=== PATIENT | male | born 1955 | race Caucasian/White ===

== ENCOUNTER 2021-02-16 10:16 | Emergency (ER) | payer OTHER ==
[~2021-02-16 10:16] MED LIST: HYDROCHLOROT25 MG PO; LISINOPRIL2.5 MG PO; NORVASC2.5 M1 PO
[2021-02-16] MEDS ORDERED: LAMICTAL25 M2 PO (10:29)
[2021-02-16] MEDS ORDERED: ASPIRIN LOW81 M1 PO (10:29)
[2021-02-16 11:05] LABS: HEMATOCRIT 37.9 % (39.0-50.0); HEMOGLOBIN 12.5 g/dl (14.0-18.0); IMMATURE GRANULOCYTES 0.2 % (0.0-5.0); MEAN CELL VOLUME 89.6 fL CALC (80.0-100.0); MEAN CORPUSCULAR HGB 29.6 pG CALC (26.0-32.0); NEUT# 5.7 thou/uL (1.82-7.42); RED BLOOD COUNT 4.23 mill/uL (4.70-6.10); RED CELL DISTRI WIDTH 13.6 % (11.5-15.5)
[2021-02-16 11:22] LABS: ANION GAP 12 (6-22 (CALC)); BUN 20 mg/dL (8-23); BUN/CREATININE RATIO 30 (12-20 (CALC)); CARBON DIOXIDE 24 mmol/l (22-30); CHLORIDE 99 mmol/l (95-108); CREATININE 0.7 mg/dL (0.7-1.3); GFR > 60 ML/MIN (>=60 (CALC)); GFR FOR AFR.AMER. > 60 ML/MIN (>=60 (CALC)); POTASSIUM 3.3 mmol/l (3.5-5.1); SODIUM 131 mmol/l (137-146)
[2021-02-16] MEDS ORDERED: CEPHALEXIN500 M1 PO (14:07)
[2021-02-16 14:14] VITALS: BP 135/70
[2021-04-05] MEDS ORDERED: PRAVASTATIN10 MG PO (08:34)
[2021-04-05] MEDS ORDERED: NORVASC5 M1 PO (08:34)
[2021-04-05] MEDS ORDERED: EXCEDRIN EXTRA1 TA1 PO (08:35)
[2021-04-05] MEDS ORDERED: IBUPROFEN PO (08:36)
[2021-04-05] MEDS ORDERED: FAMOTIDINE20 M1 PO (08:37)
[2021-04-08] MEDS ORDERED: NORVASC PO (07:21)
[2021-04-08] MEDS ORDERED: PEPCID20 MG PO (07:21)
[2021-04-08] MEDS ORDERED: TUMS500 MG PO (07:22)
[2021-04-08] MEDS ORDERED: PRAVACHOL20 MG PO (07:22)
== END 2021-02-16 14:52 | DRG 916 ==
LOC: ED 10:16
PROVIDERS: Family Medicine
DX: T78.40XA Allergy, unspecified, initial encounter (principal); L03.211 Cellulitis of face; I10 Essential (primary) hypertension; G50.0 Trigeminal neuralgia; X58.XXXA Exposure to other specified factors, initial encounter; Z20.822 Contact with and (suspected) exposure to COVID-19

== ENCOUNTER 2021-04-09 06:11 | Day surgery (SDC) | payer OTHER ==
[~2021-04-09 06:11] MED LIST changes: +ASPIRIN LOW81 M1 PO; +CEPHALEXIN500 M1 PO; +EXCEDRIN EXTRA1 TA1 PO; +FAMOTIDINE20 M1 PO; +IBUPROFEN PO; +LAMICTAL25 M2 PO; +NORVASC PO; +NORVASC5 M1 PO; +PEPCID20 MG PO; +PRAVACHOL20 MG PO; +PRAVASTATIN10 MG PO; +TUMS500 MG PO
[2021-04-09 13:03] VITALS: BP 161/83
== END 2021-04-09 13:55 | DRG 352 ==
LOC: ORM 06:11
PROVIDERS: ATTEND Surgery
PROC: 0YU60JZ Supplement Left Inguinal Region with Synthetic Substitute, Open Approach (ICD-10-PCS; principal; 2021-04-09)
PROC: 0VBG0ZZ Excision of Left Spermatic Cord, Open Approach (ICD-10-PCS; 2021-04-09)
DX: K40.90 Unilateral inguinal hernia, without obstruction or gangrene, not specified as recurrent (principal); D17.6 Benign lipomatous neoplasm of spermatic cord; I10 Essential (primary) hypertension
CPT/HCPCS: C9290; J0131; J1100; J2710